=== PATIENT | female | born 1950 ===

== ENCOUNTER → 2018-04-05 | Outpatient (CLI) | payer OTHER | LOC: CIMAGING 12:27 | PROVIDERS: ATTEND Family Medicine | DX: R10.11 Right upper quadrant pain (principal); K76.0 Fatty (change of) liver, not elsewhere classified | CPT/HCPCS: 76705-PO ==

== ENCOUNTER → 2019-05-05 | Outpatient (CLI) | payer OTHER | LOC: CIMAGING 11:09 ==